=== PATIENT | female | born 1995 | race Caucasian/White ===

== ENCOUNTER 2017-02-10 19:28 | Emergency (ER) | payer BC ==
[~2017-02-10] VITALS: Ht 157.5 cm; Wt 70.8 kg
[2017-02-10 19:28] VITALS: BP_SYST 149
--- NOTE | 2017-02-10 19:30 | NUR ---
Patient to ER bed 7 to gown for evaluation. Side rails up. Report given to ISRAEL VASQUEZ.
--- NOTE | 2017-02-10 19:33 | NUR ---
Patient to ER with multiple complaints. Sore throat since , left ear pain for the past 4 months and UTI symptoms which are worse today. Mild sore reddness. Afebrile. AAOx4, unlabored breathing, no signs of acute distress.
--- NOTE | 2017-02-10 19:51 | NUR ---
ER ELAINE Garcia at bedside for evaluation
[2017-02-10] MEDS ORDERED: PENICILLIN G BENZATHINE 1.2 MMU/2 ML SYR IM ONE (20:00)
[2017-02-10] MEDS ORDERED: KETOROLAC TROMETHAMINE 60 MG/2 ML VIAL IM ONE (20:00)
[2017-02-10 20:09] LABS: BILIRUBIN,URINE NEGATIVE (NEGATIVE); BLOOD, URINE NEGATIVE (NEGATIVE); CLARITY/URINE SL HAZY (CLEAR); COLOR,URINE YELLOW (YELLOW); GLUCOSE,URINE NEGATIVE (NEGATIVE); KETONES,URINE NEGATIVE (NEGATIVE); LEUKOCYTE ESTERASE ,URINE NEGATIVE (NEGATIVE); NITRITE, URINE NEGATIVE (NEGATIVE); PROTEIN URINE NEGATIVE (NEGATIVE); UROBILINOGEN,URINE 0.2 (0.2-1.0)
[2017-02-10 20:50] VITALS: BP_SYST 127
--- NOTE | 2017-02-10 20:50 | NUR ---
Patient given written and verbal discharge instructions and verbalizes understanding. ER [employer]ILRO[employer]NAL AND SW[employer] OPERATOR Radha discussed with patient the results and treatment provided. Patient in stable condition. ID arm band removed. Rx of motrin & prednisone given. Patient educated on pain management and to follow up with PMD. Pain Scale 0/10. Opportunity for questions provided and answered.
== END 2017-02-10 20:50 | disposition home or self-care (01) ==
LOC: SED 19:28
DX: J02.9 Acute pharyngitis, unspecified (principal); H92.02 Otalgia, left ear
CPT/HCPCS: 81003; 81025; 96372; 99284; J0561; J1885

== ENCOUNTER 2017-02-14 22:48 | Emergency (ER) | payer BC ==
[~2017-02-14] VITALS: Ht 157.5 cm; Wt 72.1 kg
[2017-02-14 22:52] VITALS: BP_SYST 135
--- NOTE | 2017-02-14 22:56 | NUR ---
Patient to ER bed 4 to gown for evaluation. Side rails up. Report given to Sujey VASQUEZ.
--- NOTE | 2017-02-14 23:10 | NUR ---
Patient reports that she has been having lower back pain starting today and worsening. Denies any dysuria, or any trauma to the area. Pain 8/10. No other complaints/injuries per patient or as noted. Will continue to monitor.
--- NOTE | 2017-02-14 23:11 | NUR ---
Dr. Daniel at bedside.
[2017-02-14] MEDS ORDERED: KETOROLAC TROMETHAMINE 30 MG VIAL IVP ONE (23:15)
[2017-02-14] MEDS ORDERED: NACL 0.9% 1,000 ML IV ONE (23:15)
[2017-02-14 23:49] LABS: HEMATOCRIT 27.1 % (36-48); HEMOGLOBIN 8.8 g/dL (12.0-16.0); MEAN CORPUSCULAR HEMOGLOBIN 23 pg (27-31); MEAN CORPUSCULAR HGB CONC 33 % (32-36); MEAN CORPUSCULAR VOLUME 71 fL (79.0-98.0); PLATELET COUNT (AUTO) 330 K/uL (130-430); RED BLOOD CELL COUNT(AUTO) 3.84 MIL/uL (4.2-6.2); RED CELL DISTRIBUTION WIDTH 17.7 % (9.0-15.0); WHITE BLOOD COUNT (AUTO) 10.4 K/uL (4.5-11.0)
[2017-02-14 23:59] LABS: CALCIUM 8.1 mg/dL (8.4-11.0); CREATININE 1.07 mg/dL (0.55-1.30); POTASSIUM 2.9 mmol/L (3.5-5.1)
[2017-02-15 00:02] LABS: TOTAL BILIRUBIN 0.3 mg/dL (0.0-1.0); TOTAL PROTEIN, SERUM 7.1 g/dL (6.4-8.3)
[2017-02-15 00:03] LABS: ALBUMIN 3.5 g/dL (3.4-4.8)
[2017-02-15 00:04] LABS: CLARITY/URINE CLOUDY (CLEAR); COLOR,URINE YELLOW (YELLOW)
[2017-02-15 00:05] LABS: BILIRUBIN,URINE NEGATIVE (NEGATIVE); BLOOD, URINE NEGATIVE (NEGATIVE); GLUCOSE,URINE NEGATIVE (NEGATIVE); KETONES,URINE NEGATIVE (NEGATIVE); LEUKOCYTE ESTERASE ,URINE NEGATIVE (NEGATIVE); NITRITE, URINE NEGATIVE (NEGATIVE); PROTEIN URINE 1+ (NEGATIVE); UROBILINOGEN,URINE 0.2 (0.2-1.0)
[2017-02-15 00:07] LABS: BACTERIA,URINE MODERATE /HPF (None Seen); RBC,URINE 0-3 /HPF (0-3); WBC,URINE 0-3 /HPF (0-3)
[2017-02-15 00:08] LABS: MUCUS,URINE None Seen /LPF (None Seen)
[2017-02-15 00:11] LABS: BASOPHILS # (AUTO) 0.1 K/uL (0.0-0.2); BASOPHILS % (AUTO) 0.6 % (0.0-2.0); EOSINOPHILS # (AUTO) 0.1 K/uL (0.0-0.4); LYMPHOCYTES # (AUTO) 2.2 K/uL (1.0-5.5); LYMPHOCYTES % (AUTO) 21.4 % (20.5-51.5); MONOCYTES # (AUTO) 1.5 K/uL (0.0-1.0); MONOCYTES % (AUTO) 14.1 % (1.7-9.3); NEUTROPHILS # (AUTO) 6.5 K/uL (1.8-7.7); NEUTROPHILS % (AUTO) 62.9 % (40.0-70.0)
[2017-02-15] MEDS ORDERED: POTASSIUM CHLORIDE 20 MEQ TAB.PRT.SR PO ONE (00:15)
[2017-02-15 00:28] LABS: IRON (SERUM) 35 mcg/dL (37-145); TOTAL IRON BIND. CAPACITY 426 ug/dL (250-450)
--- NOTE | 2017-02-15 01:12 | NUR ---
Note undone in EDM - 02/15/17 at 0120 by [email or web address] Patient given written and verbal discharge instructions and verbalizes understanding. ER discussed with patient the results and treatment provided. Patient in stable condition. ID arm band removed. No Rx given. Patient educated on pain management and to follow up with PMD. Pain Scale 3/10 Opportunity for questions provided and answered.
[2017-02-15 01:28] VITALS: BP_SYST 135
--- NOTE | 2017-02-15 01:28 | NUR ---
Patient given written and verbal discharge instructions and verbalizes understanding. ER MD discussed with patient the results and treatment provided. Patient in stable condition. ID arm band removed. IV catheter removed intact and dressing applied, no active bleeding. Rx of Potassium Chloride and Ferrous sulfate given. Patient educated on pain management and to follow up with PMD in 2 days. Pain Scale 0/10 Opportunity for questions provided and answered.
== END 2017-02-15 01:28 | disposition home or self-care (01) ==
LOC: SED 22:48
DX: E87.6 Hypokalemia (principal); E86.0 Dehydration; D64.9 Anemia, unspecified
CPT/HCPCS: 36415; 74176; 80053; 81000; 81025; 82728; 83540; 83550; 85025; 87086; 96361; 96374; 99285; J1885; J7030

== ENCOUNTER 2020-02-23 09:52 | Emergency (ER) | payer BC ==
[~2020-02-23] VITALS: Ht 157.5 cm; Wt 67.1 kg
--- NOTE | 2020-02-23 10:00 | NUR ---
PATIENT TO ER #6
[2020-02-23 10:03] VITALS: BP_SYST 128
--- NOTE | 2020-02-23 10:05 | NUR ---
ER at bedside examining patient.
--- NOTE | 2020-02-23 10:06 | NUR ---
Pt came to ER for fever, BAGLEY, sore throat. Pt was seen in urgent care on Saturday where she had strep test done and is awaiting results. Pt resting in [facility] at this time, VSS, no distress noted.
--- NOTE | 2020-02-23 10:06 | NUR ---
Pt currently afebrile at 98.8 temperature.
[2020-02-23 10:57] VITALS: BP_SYST 128
--- NOTE | 2020-02-23 10:58 | NUR ---
Patient given written and verbal discharge instructions and verbalizes understanding. ER MD discussed with patient the results and treatment provided. Patient in stable condition. ID arm band removed. Rx of Acyclovir and Topical cream given. Patient educated on pain management and to follow up with PMD. Pain Scale 0. Opportunity for questions provided and answered. Medication side effect fact sheet provided.
== END 2020-02-23 10:57 | disposition home or self-care (01) ==
LOC: SED 09:52
DX: B00.2 Herpesviral gingivostomatitis and pharyngotonsillitis (principal)
CPT/HCPCS: 99283